=== PATIENT | female | born 1980 | race Caucasian/White ===

== ENCOUNTER 2016-08-02 06:11 | Day surgery (SDC) | payer BC, OTHER ==
[2016-07-31 15:26] VITALS: BMI 24.0
--- NOTE | 2016-08-01 17:33 | P.HPOB ---
History of Present Illness H&P Date: 08/01/16 Chief Complaint: Requesting permanent sterilization. This patient is a pleasant 36-year-old 4 para 2 female who is requesting laparoscopic tubal cauterization for permanent sterilization. In patients previous marriage her had a vasectomy, she offers subsequently has gotten and now requests permanent sterilization. Patient and I have discussed options for control and this is the method she has chosen. Patient is also had an endometrial ablation in the past and is of course and imperative that she does not get . Review of Systems Constitutional: Denies chills, Denies fever Ears, nose, mouth and throat: Denies headache, Denies sore throat Cardiovascular: Denies chest pain, Denies shortness of breath Respiratory: Denies cough Gastrointestinal: Denies abdominal pain, Denies diarrhea, Denies nausea, Denies vomiting Genitourinary: Denies dysuria, Denies hematuria Menstruation: Reports period light Musculoskeletal: Denies myalgias Past Medical History Past Medical History: No Reported History Additional Past Medical History / Comment(s): migraines, History of Any Multi-Drug Resistant Organisms: None Reported Past Surgical History: Appendectomy, Uterine Ablation Additional Past Surgical History / Comment(s): Patient is had a LEEP done and 2 D&Cs. Past Anesthesia/Blood Transfusion Reactions: No Reported Reaction Past Psychological History: No Psychological Hx Reported Smoking Status: Current every day smoker Past Alcohol Use History: Occasional Additional Past Alcohol Use History / Comment(s): smokes 1/2 PPD for 15 yrs on and off Past Drug Use History: None Reported - Past Family History Mother Family Medical History: No Reported History Medications and Allergies Home Medications Medication Instructions Recorded Confirmed Type Acetaminophen-Codeine 300-30mg 1 tab PO DAILY PRN 04/16/16 07/31/16 History [Tylenol w/codeine #3] ALPRAZolam [Xanax] 1 mg PO TID 07/31/16 07/31/16 History Dextroamphetamine/Amphetamine 20 mg PO DAILY 07/31/16 07/31/16 History [Adderall] Allergies Allergy/AdvReac Type Severity Reaction Status Date / Time No Known Allergies Allergy Verified 07/31/16 15:19 Exam - OBG Physical Exam Abdomen: bowel sounds normal, no diffuse tenderness, no bruit present, no guarding noted, no hepatomegaly, no splenomegaly, no mass Vulva: both: normal Vagina: normal moisture, no discharge Cervix: no lesion, no discharge Uterus: normal size, normal contour Adnexa: both: normal Assessment and Plan (1) Family planning Narrative/Plan: This is a pleasant 36-year-old 4 para 2 female who is requesting laparoscopic bilateral fallopian tube cauterization for permanent sterilization. Patient and I have discussed options for control and this is the method she has chosen. She understands that it is considered permanent however there is a failure rate of approximately 20-25 per thousand procedures done. She understands if she does become she has a 50% chance of a tubal or an ectopic . She also understands this as elective surgery and surgery itself has risks including risks of infection, bleeding, possible injury to bowel, bladder, vessels, and other organs. All the patient's questions are answered and a written consent is obtained. Plan is laparoscopic bilateral fallopian tube cauterization. Status: Acute
[~2016-08-02 06:11] MED LIST: DEXAMETHASONE SOD PHOSPHATE 10 MG/ML 1 ML VIAL IV ONE; HYDROmorphone 1 MG/ML 1 ML SYRINGE IVP PRN; LACTATED RINGERS 1,000 ML IV SCH; LIDOCAINE 1% 20 ML VIAL (10MG/ML) FOR IV START INTRADERMA PRN; MIDAZOLAM 2 MG/2 ML VIAL IV PRN; ONDANSETRON 4 MG/2 ML VIAL IVP ONE; Pre Op ABX Message 1 EACH MISC MISCELLANE ONE; SCOPOLAMINE 1.5MG/72HR PATCH TRANSDERM ONE
[2016-08-02] MEDS ORDERED: KETOROLAC 30 MG/ML 1 ML VIAL ONE (07:25)
[2016-08-02] MEDS ORDERED: LIDOCAINE 1% INJ 10MG/ML (20 ML MDV) ONE (07:25)
[2016-08-02] MEDS ORDERED: MIDAZOLAM 2 MG/2 ML VIAL ONE (07:25)
[2016-08-02] MEDS ORDERED: fentaNYL (PF) 50 MCG/ML 2 ML AMP ONE (07:25)
[2016-08-02] MEDS ORDERED: PROPOFOL 10 MG/ML 20 ML VIAL IV ONE (07:25)
[2016-08-02] MEDS ORDERED: SUCCINYLCHOLINE CHLORIDE 100 MG/5 ML SYR IV ONE (07:25)
[2016-08-02] MEDS ORDERED: BUPIVACAINE (PF) 0.5% 30 ML VIAL SQ ONE ×2 (07:44→07:56)
[2016-08-02] MEDS ORDERED: LACTATED RINGERS 1,000 ML IV ONE (07:55)
--- NOTE | 2016-08-02 08:10 | P.OP ---
Date of Procedure: 08/02/16 Preoperative Diagnosis: Multi parity desires permanent sterilization. Postoperative Diagnosis: Same Procedure(s) Performed: Laparoscopic bilateral fallopian tube cauterization Anesthesia: THANHA Surgeon: Donovan Braun Estimated Blood Loss (ml): 10 Pathology: none sent Condition: stable Disposition: PACU Indications for Procedure: Please see dictated H&P for intimate details of this patient's admission. Brief summary is a pleasant 36-year-old 4 para 2 female who is requesting laparoscopic tubal cauterization for permanent sterilization. Patient does understand this is considered a permanent procedure, however there is a failure rate of approximately 20-25 per thousand procedures done. She understands if she were to become she has a 50% chance of a tubal or an ectopic . Patient also understands that laparoscopic surgery and apparently has risks including risks of infection, bleeding, possible injury bowel, bladder, vessels, and/or other organs. Description of Procedure: This patient is taken to the operating room where she is laid in the supine position. She subsequently undergoes general endotracheal anesthesia without incident. With an adequate level of anesthesia was placed in dorsal lithotomy position. His vaginal perineal abdominal prep and drape. I first good on below placed a speculum into the vagina visualizing the cervix. An Allis clamp was placed on the anterior lip of the cervix and a large acorn cannula is placed into the endocervix and placed to the Allis clamp. A red Pepe is then placed in the bladder for drainage. I then changed gloves and go up above. I make a 1 cm infraumbilical incision through her previous appendectomy scar. Through this I placed a 10 mm bladed optical trocar. Peritoneal placement is confirmed and a pneumoperitoneum is created to 12 mm of carbon dioxide gas. Patient placed in Trendelenburg. Approximately 2 finger breaths above the symphysis pubis I make a 5 mm incision and a 5 mm bladed lists trochars placed under direct visualization. Using a blunt probe I then visualize uterus tubes and ovary and all appears normal. I then take a bipolar device grabbed the left fallopian tube approximately 4 cm from its cornual insertion and cauterize a 2-3 cm segment of tube. Complete cauterization is noted by the volt meter. Similar technique on the right side is done with similar results. With this completed the procedure is then ended. The lower trochars removed and good hemostasis is noted the pneumoperitoneum was reduced and the upper trochars removed. Incisions are closed using 4-0 Vicryl interrupted fashion. Steri-Strips and sterile dressing is applied. I infiltrate the incisions with half percent Marcaine. Go down below remove the Allis acorn cannula and speculum. All counts are correct 3. There are no complications. Patient's taken recovery room in satisfactory condition.
[2016-08-02 08:28] VITALS: TEMP 99.2
[2016-08-02 09:07] VITALS: RESP 18
[2016-08-02 09:49] VITALS: BP 116/82; PULSE 78
== END 2016-08-02 09:48 | disposition home or self-care (01) ==
LOC: OR 06:11
PROVIDERS: ATTEND Obstetrics & Gynecology
DX: Z30.2 Encounter for sterilization (principal); F17.200 Nicotine dependence, unspecified, uncomplicated; Z79.899 Other long term (current) drug therapy
CPT/HCPCS: 81025; 58670; J2250; J1100; J2405; J2001; J3010; J1885; J0330; J2704

== ENCOUNTER 2018-05-29 01:56 | Emergency (ER) | payer BC ==
[2018-05-29 02:04] VITALS: BP 126/88; PULSE 114
--- NOTE | 2018-05-29 02:48 | ED ---
General Adult HPI - General Chief complaint: Upper Respiratory Infection Stated complaint: Poss flu Time Seen by Provider: 05/29/18 02:48 Source: patient Limitations: no limitations - History of Present Illness Initial comments: Jaclyn is a previously healthy 38-year-old female who presents the emergency department today because she needs a work note. Patient reports she believed she's been suffering from influenza. 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 Patient reports she began feeling unwell on Saturday the week she progressively worsened, patient reports she's had fevers, chills, body aches and upper respiratory type symptoms. She's been treating herself with supportive care and plenty of sleep. She's been unable to attend work this week. She states that her employer advised her that she needed to have a doctor 's note by the beginning of work tomorrow morning. States she's began to feel better this evening and believe she is now on the upswing, she states she didn't go to her primary care physician because she was sleeping all day but decided to come to the ER now that she was feeling better so that she can get a work note. Patient states she doesn't feel that she needs any further workup, she's confident that she has a viral illness does not require any antibiotics and we'll continue supportive care at home. - Related Data Home Medications Medication Instructions Recorded Confirmed ALPRAZolam [Xanax] 1 mg PO TID 07/31/16 05/29/18 Dextroamphetamine/Amphetamine 20 mg PO DAILY 07/31/16 05/29/18 [Adderall] Allergies Allergy/AdvReac Type Severity Reaction Status Date / Time No Known Allergies Allergy Verified 08/02/16 06:22 Review of Systems ROS Statement: Those systems with pertinent positive or pertinent negative responses have been documented in the HPI. ROS Other: All systems not noted in ROS Statement are negative. Past Medical History Past Medical History: No Reported History Additional Past Medical History / Comment(s): migraines, History of Any Multi-Drug Resistant Organisms: None Reported Past Surgical History: Appendectomy, Uterine Ablation Additional Past Surgical History / Comment(s): Patient is had a LEEP done and 2 D&Cs. Past Anesthesia/Blood Transfusion Reactions: No Reported Reaction Past Psychological History: No Psychological Hx Reported Smoking Status: Current every day smoker Past Alcohol Use History: Occasional Past Drug Use History: None Reported - Past Family History Mother Family Medical History: No Reported History General Exam - General Exam Comments Initial Comments: Physical Exam GENERAL: Patient is well-developed and well-nourished. Patient is nontoxic and well- hydrated and is in no distress. HENT: Normocephalic, Atraumatic. EYES: PERRL, EOMI PULMONARY: Unlabored respirations. No audible rales rhonchi or wheezing was noted. CARDIOVASCULAR: There is a regular rate and rhythm without any murmurs gallops or rubs. ABDOMEN: Soft and nontender with normal bowel sounds. SKIN: Warm to the touch, Skin is clear with no lesions or rashes and otherwise unremarkable. : Deferred NEUROLOGIC: Patient is alert and oriented x3. Moving all extremities spontaneously MUSCULOSKELETAL: Normal extremities with adequate strength and full range of motion. No lower extremity swelling or edema. No calf tenderness. PSYCHIATRIC: Normal psychiatric evaluation. Limitations: no limitations Limitations: no limitations Course Vital Signs 05/29/18 02:00 Temperature 98.1 F Pulse Rate 114 H Respiratory 20 Rate Blood Pressure 126/88 O2 Sat by Pulse 99 Oximetry Medical Decision Making - Medical Decision Making The patient was seen and evaluated, history obtained from the patient, patient has history and physical exam consistent with viral illness I offered to obtain labs and chest x-ray however patient doesn't feel this is necessary. She does feel she is improving. At this time the patient would like a work note excusing her from work through later today. Patient would like to return to work on May 30. A work note was provided shins pertaining care were answered, return parameters were discussed the patient was discharged home in stable condition. Disposition Clinical Impression: Viral infection Disposition: HOME SELF-CARE Instructions: Upper Respiratory Infection (ED) Is patient prescribed a controlled substance at d/c from ED?: No Referrals: Kwame Rascon MD [Primary Care Provider] - 1-2 days Time of Disposition: 03:03
[2018-05-29 03:20] VITALS: RESP 16; TEMP 98
== END 2018-05-29 03:18 | disposition home or self-care (01) ==
LOC: EC 01:56
DX: B34.9 Viral infection, unspecified (principal); F17.200 Nicotine dependence, unspecified, uncomplicated; Z79.899 Other long term (current) drug therapy
CPT/HCPCS: 99283